=== PATIENT | male | born 1960 | race Native Hawaiian/Other Pacific Islander ===

== ENCOUNTER 2018-05-09 08:16 | Observation (INO) | payer BC ==
[2018-05-09] MEDS ORDERED: ASPIRIN 81 MG PO STA (08:42)
[2018-05-09] MEDS ORDERED: NITROGLYCERIN OINT 1 INCH/GM PACKET TOPICAL STA (08:42)
--- NOTE | 2018-05-09 08:47 | ED ---
General Adult HPI - General Chief complaint: Chest Pain Stated complaint: Chest Pain Time Seen by Provider: 05/09/18 08:20 Source: patient, RN notes reviewed Mode of arrival: wheelchair Limitations: no limitations - History of Present Illness Initial comments: This is a 58-year-old male who presents emergency Department with a past history of hypertension. Patient states he has a very strong family history of heart disease. Patient states this morning he woke up her chest pressure and some of his chest and he felt a little short of breath. Patient denies any radiation of the pain. Patient denies any diaphoresis. Patient denies any nausea vomiting. Patient denies any recent fever chills or cough. Patient denies having similar symptoms in the past. Patient denies abdominal pain patient denies nausea vomiting diarrhea. Patient denies any recent injury or trauma. Patient denies any excessive exercise. Patient denies any swelling to the legs or calf tenderness. - Related Data Home Medications Medication Instructions Recorded Confirmed Allopurinol [Zyloprim] 200 mg PO DAILY 05/09/18 05/09/18 Ascorbic Acid [Vitamin C] 500 mg PO DAILY 05/09/18 05/09/18 Aspirin EC [Ecotrin Low Dose] 81 mg PO DAILY 05/09/18 05/09/18 Carvedilol [Coreg] 3.125 mg PO BID 05/09/18 05/09/18 Losartan Potassium 50 mg PO HS 05/09/18 05/09/18 Multivitamin,Therapeutic [Thera] 1 tab PO DAILY 05/09/18 05/09/18 [place]-3 Fatty Acids/Fish Oil [Fish 1 cap PO DAILY 05/09/18 05/09/18 Oil 1,000 mg Softgel] Pravastatin Sodium [Pravachol] 80 mg PO HS 05/09/18 05/09/18 Red Yeast Rice 600 mg PO DAILY 05/09/18 05/09/18 Ubidecarenone [Co Q-10] 100 mg PO DAILY 05/09/18 05/09/18 metFORMIN HCL [Glucophage] 500 mg PO BID 05/09/18 05/09/18 Allergies Allergy/AdvReac Type Severity Reaction Status Date / Time No Known Allergies Allergy Verified 05/09/18 08:56 Review of Systems ROS Statement: Those systems with pertinent positive or pertinent negative responses have been documented in the HPI. ROS Other: All systems not noted in ROS Statement are negative. Past Medical History Past Medical History: Hypertension History of Any Multi-Drug Resistant Organisms: None Reported Past Surgical History: Orthopedic Surgery Past Psychological History: No Psychological Hx Reported Smoking Status: Never smoker Past Alcohol Use History: Occasional Past Drug Use History: None Reported - Past Family History Father Family Medical History: Coronary Artery Disease (CAD) Additional Family Medical History / Comment(s): Father had 3 vessel CABG at the age of 65yrs. Mother Family Medical History: No Reported History Additional Family Medical History / Comment(s): Mother is heathy. General Exam - General Exam Comments Initial Comments: GENERAL: Patient is well-developed and well-nourished. Patient is nontoxic and well- hydrated and is in mild distress. ENT: Neck is soft and supple. No significant lymphadenopathy is noted. Oropharynx is clear. Moist mucous membranes. Neck has full range of motion without eliciting any pain. EYES: The sclera were anicteric and conjunctiva were pink and moist. Extraocular mo vements were intact and pupils were equal round and reactive to light. Eyelids were unremarkable. PULMONARY: Unlabored respirations. Good breath sounds bilaterally. No audible rales rhonchi or wheezing was noted. CARDIOVASCULAR: There is a regular rate and rhythm without any murmurs gallops or rubs. ABDOMEN: Soft and nontender with normal bowel sounds. No palpable organomegaly was noted. There is no palpable pulsatile mass. SKIN: Skin is clear with no lesions or rashes and otherwise unremarkable. NEUROLOGIC: Patient is alert and oriented x3. Cranial nerves II through XII are grossly intact. Motor and sensory are also intact. Normal speech, volume and content. Symmetrical smile. MUSCULOSKELETAL: Normal extremities with adequate strength and full range of motion. LYMPHATICS: No significant lymphadenopathy is noted PSYCHIATRIC: Normal psychiatric evaluation. Limitations: no limitations Course Vital Signs 05/09/18 05/09/18 05/09/18 08:18 09:02 09:06 Temperature 97.8 F Pulse Rate 72 67 Pulse Rate [ 69 Quilt Stuffer ] Respiratory 18 17 Rate Blood Pressure 160/94 O2 Sat by Pulse 100 Oximetry 05/09/18 05/09/18 05/09/18 10:00 12:00 12:20 Temperature Pulse Rate 63 69 60 Pulse Rate [ Quilt Stuffer ] Respiratory 16 15 16 Rate Blood Pressure 134/88 125/85 O2 Sat by Pulse 98 Oximetry 05/09/18 05/09/18 13:31 14:00 Temperature Pulse Rate 73 70 Pulse Rate [ Quilt Stuffer ] Respiratory 18 15 Rate Blood Pressure 129/87 129/87 O2 Sat by Pulse 100 Oximetry Medical Decision Making - Medical Decision Making EKG shows normal sinus rhythm at 69 bpm CO interval is on a 56 QRS is 94 QT interval 380 QTC is 407 per patient's EKG shows no ST segment elevation or depression or T wave abnormalities are noted. Chest x-ray shows no acute abnormality. I started the patient on heparin. After the patient received aspirin and Nitropaste patient was feeling better and had no chest pain at this time. I spoke with Dr. Hernandez he agreed to admit the patient admitted the patient wrote admitting orders. I consult cardiology. I continued heparin and aspirin Nitropaste on the floor. - Lab Data Result diagrams: 05/09/18 09:00 05/09/18 09:00 Lab Results 05/09/18 05/09/18 05/09/18 Range/Units 09:00 09:00 09:00 WBC 8.2 (3.8-10.6) k/uL RBC 3.88 L (4.30-5.90) m/uL Hgb 12.9 L (13.0-17.5) gm/dL Hct 40.2 (39.0-53.0) % MCV 103.7 H (80.0-100.0) fL MCH 33.3 (25.0-35.0) pg MCHC 32.1 (31.0-37.0) g/dL RDW 12.8 (11.5-15.5) % Plt Count 191 (150-450) k/uL Neutrophils % 80 % Lymphocytes % 12 % Monocytes % 4 % Eosinophils % 3 % Basophils % 0 % Neutrophils # 6.6 (1.3-7.7) k/uL Lymphocytes # 1.0 (1.0-4.8) k/uL Monocytes # 0.4 (0-1.0) k/uL Eosinophils # 0.2 (0-0.7) k/uL Basophils # 0.0 (0-0.2) k/uL Macrocytosis Slight PT 9.8 (9.0-12.0) sec INR 0.9 (<1.2) APTT 23.7 (22.0-30.0) sec Sodium 141 (137-145) mmol/L Potassium 4.1 (3.5-5.1) mmol/L Chloride 109 H (98-107) mmol/L Carbon Dioxide 26 (22-30) mmol/L Anion Gap 6 mmol/L BUN 14 (9-20) mg/dL Creatinine 1.02 (0.66-1.25) mg/dL Est GFR (CKD-EPI)AfAm >90 (>60 ml/min/1.73 sqM) Est GFR (CKD-EPI)NonAf 80 (>60 ml/min/1.73 sqM) Glucose 117 H (74-99) mg/dL Calcium 9.3 (8.4-10.2) mg/dL Magnesium 1.6 (1.6-2.3) mg/dL Total Bilirubin 0.4 (0.2-1.3) mg/dL AST 28 (17-59) U/L ALT 39 (21-72) U/L Alkaline Phosphatase 50 (38-126) U/L Troponin I (0.000-0.034) ng/mL Total Protein 6.2 L (6.3-8.2) g/dL Albumin 3.7 (3.5-5.0) g/dL 05/09/18 Range/Units 09:00 WBC (3.8-10.6) k/uL RBC (4.30-5.90) m/uL Hgb (13.0-17.5) gm/dL Hct (39.0-53.0) % MCV (80.0-100.0) fL MCH (25.0-35.0) pg MCHC (31.0-37.0) g/dL RDW (11.5-15.5) % Plt Count (150-450) k/uL Neutrophils % % Lymphocytes % % Monocytes % % Eosinophils % % Basophils % % Neutrophils # (1.3-7.7) k/uL Lymphocytes # (1.0-4.8) k/uL Monocytes # (0-1.0) k/uL Eosinophils # (0-0.7) k/uL Basophils # (0-0.2) k/uL Macrocytosis PT (9.0-12.0) sec INR (<1.2) APTT (22.0-30.0) sec Sodium (137-145) mmol/L Potassium (3.5-5.1) mmol/L Chloride (98-107) mmol/L Carbon Dioxide (22-30) mmol/L Anion Gap mmol/L BUN (9-20) mg/dL Creatinine (0.66-1.25) mg/dL Est GFR (CKD-EPI)AfAm (>60 ml/min/1.73 sqM) Est GFR (CKD-EPI)NonAf (>60 ml/min/1.73 sqM) Glucose (74-99) mg/dL Calcium (8.4-10.2) mg/dL Magnesium (1.6-2.3) mg/dL Total Bilirubin (0.2-1.3) mg/dL AST (17-59) U/L ALT (21-72) U/L Alkaline Phosphatase (38-126) U/L Troponin I <0.012 (0.000-0.034) ng/mL Total Protein (6.3-8.2) g/dL Albumin (3.5-5.0) g/dL Critical Care Time Critical Care Time: Yes Total Critical Care Time: 35 Disposition Clinical Impression: Unstable angina Disposition: ADMITTED IP TO THIS [facility] Time of Disposition: 11:13
--- NOTE | 2018-05-09 09:35 | XR ---
EXAMINATION TYPE: XR chest 2V DATE OF EXAM: 05/09/2018 COMPARISON: NONE TECHNIQUE: PA and lateral views submitted. HISTORY: Chest pain FINDINGS: The lungs are clear and there is no pneumothorax, pleural effusion, or focal pneumonia. Heart size mildly prominent. No overt failure. Mild degenerative change of the spine. IMPRESSION: 1. No acute process.
[2018-05-09 10:17] LABS: ALT 39 U/L (21-72); AST 28 U/L (17-59); Albumin 3.7 g/dL (3.5-5.0); Alkaline Phosphatase 50 U/L (38-126); Anion Gap 6 mmol/L; Basophils % (A) 0 %; Blood Urea Nitrogen 14 mg/dL (9-20); Calcium 9.3 mg/dL (8.4-10.2); Carbon Dioxide 26 mmol/L (22-30); Chloride 109 mmol/L (98-107); Eosinophils # (A) 0.2 k/uL (0-0.7); Eosinophils % (A) 3 %; Glucose 117 mg/dL (74-99); HCT 40.2 % (39.0-53.0); HGB 12.9 gm/dL (13.0-17.5); Lymphocytes % (A) 12 %; MCH 33.3 pg (25.0-35.0); MCHC 32.1 g/dL (31.0-37.0); MCV 103.7 fL (80.0-100.0); Macrocytosis Slight; Magnesium 1.6 mg/dL (1.6-2.3); Mean Platelet Volume 6.3; Monocytes # (A) 0.4 k/uL (0-1.0); Monocytes % (A) 4 %; Neutrophils # (A) 6.6 k/uL (1.3-7.7); Neutrophils % (A) 80 %; Platelet Count 191 k/uL (150-450); Potassium 4.1 mmol/L (3.5-5.1); RBC 3.88 m/uL (4.30-5.90); RDW 12.8 % (11.5-15.5); Sodium 141 mmol/L (137-145); Total Bilirubin 0.4 mg/dL (0.2-1.3); Total Protein 6.2 g/dL (6.3-8.2); WBC 8.2 k/uL (3.8-10.6)
[2018-05-09 10:19] LABS: INR 0.9 (<1.2); Partial Thromboplastin Time 23.7 sec (22.0-30.0); Prothrombin Time 9.8 sec (9.0-12.0)
[2018-05-09] MEDS ORDERED: HEPARIN SODIUM,PORCINE 5,000 UNIT/ML 1 ML VIAL IV ONE (11:10)
[2018-05-09] MEDS ORDERED: NITROGLYCERIN SL TABS 0.4 MG TAB SUBLINGUAL PRN (11:13)
[2018-05-09] MEDS ORDERED: HEPARIN SOD,PORK IN 0.45% NACL 25,000 UNIT in 0.45% NACL 1 250ML.BAG IV SCH (11:15)
[2018-05-09] MEDS: NITROGLYCERIN OINT 1 INCH/GM PACKET TOPICAL SCH ×3 (12:27→23:20)
[2018-05-09 16:43] LABS: Glucose,Whole Blood 104 mg/dL (75-99)
[2018-05-09] MEDS: INSULIN ASPART (NovoLOG) 100 UNIT/ML VIAL SQ SCH ×2 (16:48→21:17)
[2018-05-09] MEDS ORDERED: MAG HYDROX/AL HYDROX/SIMETH 30 ML CUP PO PRN (17:00)
[2018-05-09] MEDS: CARVEDILOL 3.125 MG TAB PO SCH (17:17)
[2018-05-09] MEDS: ALLOPURINOL 100 MG TAB PO SCH (17:17)
[2018-05-09] MEDS: ASCORBIC ACID 500 MG TAB PO SCH (17:20)
[2018-05-09 18:41] LABS: D-Dimer 0.25 mg/L FEU (<0.60); Partial Thromboplastin Time 43.5 sec (22.0-30.0)
[2018-05-09] MEDS ORDERED: HEPARIN SODIUM,PORCINE 5,000 UNIT/ML 1 ML VIAL IV PRN (19:16)
[2018-05-09 20:29] LABS: Glucose,Whole Blood 159 mg/dL (75-99)
[2018-05-09] MEDS ORDERED: LOSARTAN 50 MG TAB PO SCH (21:00)
[2018-05-09] MEDS ORDERED: metFORMIN 500 MG TAB PO SCH (21:00)
[2018-05-09] MEDS ORDERED: PRAVASTATIN SODIUM 80 MG TAB PO SCH (21:00)
--- NOTE | 2018-05-09 22:44 | P.HPIM ---
History of Present Illness H&P Date: 05/09/18 Chief Complaint: Chest pressure Patient is a 58-year-old male with a known history of hypertension, hyperlipidemia, diabetes type 2 [id number], gout and family history of coronary artery disease came to ER with the complaints of chest pressure/soreness in the chest. Patient is mainly at the mid retrosternal. Associated with mild shortness of breath. Otherwise patient denied any radiation of the pain. No associated nausea vomiting or diaphoresis. Denied an y recent illnesses. No fever no chills. No cough or sputum production. No headache or dizziness or lightheadedness. Denied any heavy exercise or lifting rate. No leg swelling. No calf tenderness. Patient says that he woke up with so chest this morning. Patient is originally from [facility] and flew to [facility] 5 days back and came in [place] yesterday to see his family. Chest x-ray showed no acute cardio pulmonary process. EKG showed sinus rhythm with ST-T wave changes in the inferior leads. Troponin 2 negative Review of Systems Constitutional: Patient denies any fever or chills . No generalized weakness or weight loss. Abdomen: Patient denied nausea vomiting and diarrhea and abdominal pain. Cardiovascular: Chest pressure/soreness. Patient denies any chest pain or short of breath no palpitations. Respiratory: patient denied any cough is from production. No shortness of breath Neurologic: Patient denied any numbness or tingling headache. Musculoskeletal: Patient denies any complaints of joint swelling or deformity. Skin: Negative Psychiatric: Negative Endocrine: No heat or cold intolerance. No recent weight gain. Genitourinary: No dysuria or hematuria. All other 14 point ROS negative except the above Past Medical History Past Medical History: Hypertension Additional Past Medical History / Comment(s): NIDDM type II, gout. History of Any Multi-Drug Resistant Organisms: None Reported Past Surgical History: Orthopedic Surgery Additional Past Surgical History / Comment(s): R knee scope, colonoscopies Past Anesthesia/Blood Transfusion Reactions: No Reported Reaction Past Psychological History: No Psychological Hx Reported Smoking Status: Never smoker Past Alcohol Use History: Occasional Past Drug Use History: None Reported - Past Family History Father Family Medical History: Coronary Artery Disease (CAD) Additional Family Medical History / Comment(s): Father had 3 vessel CABG at the age of 65yrs. Mother Family Medical History: No Reported History Additional Family Medical History / Comment(s): Mother is heathy. Medications and Allergies Home Medications Medication Instructions Recorded Confirmed Type Allopurinol [Zyloprim] 200 mg PO DAILY 05/09/18 05/09/18 History Ascorbic Acid [Vitamin C] 500 mg PO DAILY 05/09/18 05/09/18 History Aspirin EC [Ecotrin Low Dose] 81 mg PO DAILY 05/09/18 05/09/18 History Carvedilol [Coreg] 3.125 mg PO BID 05/09/18 05/09/18 History Losartan Potassium 50 mg PO HS 05/09/18 05/09/18 History Multivitamin,Therapeutic [Thera] 1 tab PO DAILY 05/09/18 05/09/18 History [place]-3 Fatty Acids/Fish Oil [Fish 1 cap PO DAILY 05/09/18 05/09/18 History Oil 1,000 mg Softgel] Pravastatin Sodium [Pravachol] 80 mg PO HS 05/09/18 05/09/18 History Red Yeast Rice 600 mg PO DAILY 05/09/18 05/09/18 History Ubidecarenone [Co Q-10] 100 mg PO DAILY 05/09/18 05/09/18 History metFORMIN HCL [Glucophage] 500 mg PO BID 05/09/18 05/09/18 History Allergies Allergy/AdvReac Type Severity Reaction Status Date / Time No Known Allergies Allergy Verified 05/09/18 08:56 Physical Exam Vitals: Vital Signs Temp Pulse Pulse Pulse Resp BP BP 05/09/18 19:28 98.7 F 74 15 131/77 05/09/18 16:00 69 72 15 05/09/18 15:20 69 15 05/09/18 15:00 98.5 F 72 18 141/86 05/09/18 14:45 98.6 F 05/09/18 14:00 70 15 129/87 05/09/18 13:31 73 18 129/87 05/09/18 12:20 60 16 125/85 05/09/18 12:00 69 15 134/88 05/09/18 10:00 63 16 05/09/18 09:06 69 05/09/18 09:02 67 17 05/09/18 08:18 97.8 F 72 18 160/94 Pulse Ox 05/09/18 19:28 98 05/09/18 16:00 05/09/18 15:20 05/09/18 15:00 98 05/09/18 14:45 05/09/18 14:00 05/09/18 13:31 100 05/09/18 12:20 98 05/09/18 12:00 05/09/18 10:00 05/09/18 09:06 05/09/18 09:02 05/09/18 08:18 100 Intake and Output 05/09/18 05/09/18 05/09/18 06:59 14:59 22:59 Intake Total 665.773 Balance 665.773 Intake: Intake, IV Titration 65.773 Amount Heparin Sod,Pork in 0.45% 65.773 NaCl 25,000 unit In 0.45 % NaCl 1 250ml.bag @ 12 UNITS/KG/HR 9.199 mls/hr IV .Q24H NICK Rx#: [id number] Oral 600 Other: Voiding Method Toilet Weight 76.657 kg PHYSICAL EXAMINATION: Patient is lying in the bed comfortably, no acute distress, awake alert and oriented.. HEENT: Normocephalic. Neck is supple. Pupils reactive. Nostrils clear. Oral cavity is moist. Ears reveal no drainage. Neck reveals no JVD, carotid bruits, or thyromegaly. CHEST EXAMINATION: Trachea is central. Symmetrical expansion. Lung serrano clear to auscultation and percussion. CARDIAC: Normal S1, S2 with no gallops. No murmurs ABDOMEN: Soft. Bowel sounds normal. No organomegaly. No abdominal bruits. Extremities: reveal no edema. No clubbing or cyanosis Neurologically awake, alert, oriented x3 with well-coordinated movements. No focal deficits noted Skin: No rash or skin lesions. Psychiatric: Coperative. Nonsuicidal Musculoskeletal: No joint swelling or deformity. Normal range of motion. Results CBC & Chem 7: 05/09/18 09:00 05/09/18 09:00 Labs: Abnormal Lab Results - Last 24 Hours (Table) 05/09/18 05/09/18 05/09/18 Range/Units 09:00 09:00 16:15 RBC 3.88 L (4.30-5.90) m/uL Hgb 12.9 L (13.0-17.5) gm/dL MCV 103.7 H (80.0-100.0) fL APTT (22.0-30.0) sec Chloride 109 H (98-107) mmol/L Glucose 117 H (74-99) mg/dL POC Glucose (mg/dL) 104 H (75-99) mg/dL Total Protein 6.2 L (6.3-8.2) g/dL 05/09/18 05/09/18 Range/Units 18:00 20:27 RBC (4.30-5.90) m/uL Hgb (13.0-17.5) gm/dL MCV (80.0-100.0) fL APTT 43.5 H (22.0-30.0) sec Chloride (98-107) mmol/L Glucose (74-99) mg/dL POC Glucose (mg/dL) 159 H (75-99) mg/dL Total Protein (6.3-8.2) g/dL Thrombosis Risk Factor Assmnt - DVT/VTE Prophylaxis DVT/VTE Prophylaxis: Pharmacologic Prophylaxis ordered - Choose All That Apply Any of the Below Risk Factors Present?: Yes Each Factor Represents 1 point: Age 41-60 years Other Risk Factors: No Other congenital or acquired thrombophilia - If yes, enter type in comment: No Thrombosis Risk Factor Assessment Total Risk Factor Score: 1 Thrombosis Risk Factor Assessment Level: Low Risk Assessment and Plan Assessment: Chest pressure/unstable angina Hypertension Hyperlipidemia Diabetes type 2 zbb-hxhrqkk-hrwewunlz Gout Family history of coronary artery disease Plan: Patient will be on heparin drip. Continue with aspirin statins and Coreg. Patient will be continued on telemetry monitoring. Serial EKGs and troponins. Continue with home blood pressure medications and diabetic medications and insulin sliding scale. Cardiology was consulted. Further recommendations based on the clinical course. Time with Patient: Greater than 30
--- NOTE | 2018-05-09 23:25 | CONS ---
CONSULTATION HISTORY: Brian Guerrero is a 58-year-old gentleman with a known history of type 2 diabetes mellitus and hypertension as well as hypercholesterolemia who is visiting his family from [place]. His , but he came with his son to see the grandparents, his in-laws, and while he was here at their house he woke up this morning with a uncomfortable feeling in the chest which he described as soreness and tightness. With this, he came into the hospital. Two sets of troponins and EKG are unremarkable. He still feels he has some remanence of the soreness. The quality of the pain is very atypical, but he has significant risk factors. He is quite an active person, exercises 5 days a week. He had a stress test about 2 years ago which was unremarkable. At the time of my evaluation he is resting comfortably without symptoms. PAST MEDICAL HISTORY: 1. Hypertension. 2. Type 2 diabetes mellitus. 3. History of left knee issue for which he had arthroscopic surgery. 4. Hypertension. 5. Hyperlipidemia. MEDICATIONS: At home include metformin 500 mg b.i.d., pravastatin 80 mg daily, losartan 50 mg daily, Coreg 3.125 mg b.i.d., aspirin 81 mg daily, vitamin supplements, and allopurinol. ALLERGIES: None. REVIEW OF SYSTEMS: Unremarkable other than above-mentioned facts. PHYSICAL EXAMINATION: Blood pressure is 130/70, pulse rate 70 per minute and regular. HEENT: Unremarkable. Fundus was not examined by me. NECK: Supple. No JVD. I do not hear a carotid bruit. HEART: Exam reveals S1, S2 heard normally without a rub murmur or gallop. LUNGS: Clear. ABDOMEN: Soft, nontender. Lower extremities reveal normal pulses. No edema. FUR STRETCHER: Normal. DIAGNOSTIC DATA: EKG is unremarkable. Normal sinus rhythm noted. IMPRESSION: 1. Chest pain syndrome seems atypical in a patient with significant risk factors. 2. Hypertension. 3. Hyperlipidemia. 4. Type 2 diabetes mellitus. RECOMMENDATIONS: I will continue heparin until tomorrow. I will obtain additional enzymes. If these are normal, we will increase activity and if he has no further symptoms after brisk ambulation, I may discharge him. If he has any symptoms, I will keep him in the hospital and consider a stress test or cardiac cath. I discussed my thoughts in detail with the patient, his son and his in-laws. They understand all details and agree with the approach. MMCLEMENTINEL / IJN: [id number] /
[2018-05-10 04:49] VITALS: RESP 16
[2018-05-10] MEDS: NITROGLYCERIN OINT 1 INCH/GM PACKET TOPICAL SCH ×2 (05:39→09:19)
[2018-05-10 06:51] LABS: Glucose,Whole Blood 115 mg/dL (75-99)
[2018-05-10] MEDS: INSULIN ASPART (NovoLOG) 100 UNIT/ML VIAL SQ SCH ×2 (07:34→11:54)
[2018-05-10 08:31] LABS: Cholesterol 148 mg/dL (<200); HDL Cholesterol 55 mg/dL (40-60); LDL Cholesterol,Calculated 70 mg/dL (0-99); Triglycerides 115 mg/dL (<150)
[2018-05-10] MEDS ORDERED: ASPIRIN 325 MG TAB PO SCH (09:00)
[2018-05-10] MEDS ORDERED: ASPIRIN 81 MG PO SCH (09:00)
[2018-05-10] MEDS ORDERED: Omega-3 Fatty Acids/Fish Oil [Fish Oil 1,000 Mg Softgel] 1 CAP PO SCH (09:00)
[2018-05-10] MEDS: ALLOPURINOL 100 MG TAB PO SCH (09:19)
[2018-05-10] MEDS: CARVEDILOL 3.125 MG TAB PO SCH (09:19)
[2018-05-10] MEDS: ASCORBIC ACID 500 MG TAB PO SCH (09:19)
[2018-05-10 11:50] LABS: Glucose,Whole Blood 242 mg/dL (75-99)
[2018-05-10] MEDS ORDERED: MULTIVITAMINS, THERA 1 EACH TAB PO SCH (12:00)
[2018-05-10 12:10] VITALS: BP 112/68; PULSE 71; TEMP 98.2
[2018-05-10] MEDS ORDERED: COLCHICINE 0.6 MG EACH PO SCH (12:15)
--- NOTE | 2018-05-10 17:26 | ECHOF ---
Referral Reason:chest pain MEASUREMENTS -------- HEIGHT: 172.7 cm WEIGHT: 76.7 kg BP: RVIDd: 3.0 cm (< 3.3) IVSd: 1.3 cm (0.6 - 1.1) LVIDd: 4.3 cm (3.9 - 5.3) LVPWd: 1.4 cm (0.6 - 1.1) IVSs: 1.3 cm LVIDs: 2.9 cm LVPWs: 1.5 cm LA Diam: 3.6 cm (2.7 - 3.8) LAESV Index (A-L): 29.71 ml/m Ao Diam: 3.4 cm (2.0 - 3.7) AV Cusp: 2.0 cm (1.5 - 2.6) LA Diam: 4.0 cm (2.7 - 3.8) MV EXCURSION: 20.824 mm (> 18.000) MV EF SLOPE: 94 mm/s (70 - 150) EPSS: 0.2 cm MV E Jeb: 0.74 m/s MV DecT: 185 ms MV A Jeb: 0.92 m/s MV E/A Ratio: 0.81 RAP: 5.00 mmHg RVSP: 34.94 mmHg FINDINGS -------- Sinus rhythm. This was a technically good study. The left ventricular size is normal. There is mild concentric left ventricular hypertrophy. Overa ll left ventricular systolic function is normal with, an EF between 55 - 60 %. The right ventricle is normal in size. The left atrial size is normal. The right atrial size is normal. There is mild aortic valve sclerosis. There is no evidence of aortic regurgitation. The mitral valve leaflets are mildly thickened. Mild mitral regurgitation is present. Mild tricuspid regurgitation present. There is no evidence of pulmonary hypertension. The right v entricular systolic pressure, as measured by Doppler, is 34.94mmHg. Trace/mild (physiologic) pulmonic regurgitation. The aortic root size is normal. There is no pericardial effusion. CONCLUSIONS -------- 1. The left ventricular size is normal. 2. There is mild concentric left ventricular hypertrophy. 3. Overall left ventricular systolic function is normal with, an EF between 55 - 60 %. 4. The right ventricle is normal in size. 5. The left atrial size is normal. 6. The right atrial size is normal. 7. There is mild aortic valve sclerosis. 8. The mitral valve leaflets are mildly thickened. 9. Mild mitral regurgitation is present. 10. Mild tricuspid regurgitation present. 11. There is no evidence of pulmonary hypertension. 12. The right ventricular systolic pressure, as measured by Doppler, is 34.94mmHg. 13. Trace/mild (physiologic) pulmonic regurgitation. 14. The aortic root size is normal. 15. There is no pericardial effusion. WATCH ASSEMBLER: Hansa Pickering RDCS
--- NOTE | 2018-05-10 18:05 | PN ---
PROGRESS NOTE This is a gentleman who was seen by me yesterday. His pain was atypical. His troponins are normal. He is resting comfortably. This morning he feels well. He ambulated the hallways very briskly without symptoms. Clinically I cannot hear any abnormal findings. There is no pericardial rub, but EKG suggests there is a maybe pericarditis with CA depression and very mild J-point elevation. Given this, I will start him on colchicine 0.6 mg p.o. now and Colcrys 0.6 mg p.o. daily for the next 10- 14 days. I gave a prescription for this. Since he is ambulated without symptoms and is feeling well, I am recommending that he can be discharged today and go to [place] by flight tomorrow and he will follow up with his physician there in the next 48 hours. PHYSICAL EXAMINATION: Vital signs are stable. There is no JVD. S1-S2 heard normally. No rub, murmur or gallop. Lungs are clear. Abdomen and lower extremity exam is unchanged. MMODL / IJN: [id number] /
--- NOTE | 2018-05-26 | P.DS ---
Providers Date of admission: 05/09/18 11:13 Expected date of discharge: 05/10/18 Attending physician: Jarocho Hernandez Consults: 05/09/18 11:13 Consult Physician Urgent Consulting Provider: [facility] Consult Reason/Comments: Unstable angina Do you want consulting provider notified?: Yes Primary care physician: Physician Nonstaff Hospital Course: Discharge diagnosis Suspected acute pericarditis Chest pressure/unstable angina Hypertension Hyperlipidemia Diabetes type 2 iid-hetjzti-slhgtxqxi Gout Family history of coronary artery disease Hospital course Patient is a 58-year-old male with a known history of hypertension, hyperlipidemia, diabetes type 2 pec-ztsqyjp-vqnqultpz, gout and family history of coronary artery disease came to ER with the complaints of chest pressure/soreness in the chest. Patient is mainly at the mid retrosternal. Associated with mild shortness of breath. Otherwise patient denied any radiation of the pain. No associated nausea vomiting or diaphoresis. Denied any recent illnesses. No fever no chills. No cough or sputum production. No headache or dizziness or lightheadedness. Denied any heavy exercise or lifting rate. No leg swelling. No calf tenderness. Patient says that he woke up with so chest this morning. Patient is originally from [facility] and flew to [facility] 5 days back and came in [place] yesterday to see his family. Chest x-ray showed no acute cardio pulmonary process. EKG showed sinus rhythm with ST-T wave changes in the inferior leads. Troponin 3 negative Plan: Patient was initially started on heparin drip. Serial troponins negative. Patient was found have T-wave Depression and J-point elevation with suspected acute pericarditis. Patient was started on 0.6 mg daily. Continue with aspirin statins and Coreg. Patient was continued on telemetry monitoring. Cardiology has seen the patient. Continued with home blood pressure medications and diabetic medications and insulin sliding scale. Patient is planning to fly back to [place] tomorrow evening. 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 Patient is currently chest pain-free and is able to walk in the hallway without any shortness of breath. Clinically stable to be discharged. PHYSICAL EXAMINATION: Patient is lying in the bed comfortably, no acute distress, awake alert and oriented.. HEENT: Normocephalic. Neck is supple. Pupils reactive. Nostrils clear. Oral cavity is moist. Ears reveal no drainage. Neck reveals no JVD, carotid bruits, or thyromegaly. CHEST EXAMINATION: Trachea is central. Symmetrical expansion. Lung serrano clear to auscultation and percussion. CARDIAC: Normal S1, S2 with no gallops. No murmurs ABDOMEN: Soft. Bowel sounds normal. No organomegaly. No abdominal bruits. Extremities: reveal no edema. No clubbing or cyanosis Neurologically awake, alert, oriented x3 with well-coordinated movements. No focal deficits noted Skin: No rash or skin lesions. Psychiatric: Coperative. Nonsuicidal Musculoskeletal: No joint swelling or deformity. Normal range of motion. Discharge vitals reviewed. Patient Condition at Discharge: Stable Plan - Discharge Summary Discharge Rx Participant: No New Discharge Prescriptions: New Colchicine [Colcrys] 0.6 mg PO DAILY #14 each Continue Red Yeast Rice 600 mg PO DAILY Aspirin EC [Ecotrin Low Dose] 81 mg PO DAILY metFORMIN HCL [Glucophage] 500 mg PO BID Ubidecarenone [Co Q-10] 100 mg PO DAILY Pravastatin Sodium [Pravachol] 80 mg PO HS [place]-3 Fatty Acids/Fish Oil [Fish Oil 1,000 mg Softgel] 1 cap PO DAILY Losartan Potassium 50 mg PO HS Allopurinol [Zyloprim] 200 mg PO DAILY Carvedilol [Coreg] 3.125 mg PO BID No Action Multivitamin,Therapeutic [Thera] 1 tab PO DAILY Ascorbic Acid [Vitamin C] 500 mg PO DAILY Discharge Medication List Allopurinol [Zyloprim] 200 mg PO DAILY 05/09/18 [History] Ascorbic Acid [Vitamin C] 500 mg PO DAILY 05/09/18 [History] Aspirin EC [Ecotrin Low Dose] 81 mg PO DAILY 05/09/18 [History] Carvedilol [Coreg] 3.125 mg PO BID 05/09/18 [History] Losartan Potassium 50 mg PO HS 05/09/18 [History] Multivitamin,Therapeutic [Thera] 1 tab PO DAILY 05/09/18 [History] [place]-3 Fatty Acids/Fish Oil [Fish Oil 1,000 mg Softgel] 1 cap PO DAILY 05/09/18 [History] Pravastatin Sodium [Pravachol] 80 mg PO HS 05/09/18 [History] Red Yeast Rice 600 mg PO DAILY 05/09/18 [History] Ubidecarenone [Co Q-10] 100 mg PO DAILY 05/09/18 [History] metFORMIN HCL [Glucophage] 500 mg PO BID 05/09/18 [History] Colchicine [Colcrys] 0.6 mg PO DAILY #14 each 05/10/18 [Rx] Follow up Appointment(s)/Referral(s): Nonstaff,Physician [Primary Care Provider] - 1-2 days Discharge Disposition: HOME SELF-CARE
== END 2018-05-10 14:43 | disposition home or self-care (01) ==
LOC: EC 08:16 → 1SOBS 11:13
PROVIDERS: ADMIT Hospitalist; ATTEND Hospitalist
DX: I20.0 Unstable angina (principal); I10 Essential (primary) hypertension; E78.5 Hyperlipidemia, unspecified; E11.9 Type 2 diabetes mellitus without complications; M10.9 Gout, unspecified; Z82.49 Family history of ischemic heart disease and other diseases of the circulatory system; Z79.899 Other long term (current) drug therapy; Z79.82 Long term (current) use of aspirin; Z79.84 Long term (current) use of oral hypoglycemic drugs
CPT/HCPCS: 96366 ×3; 96376 ×2; 96365; 99291; 36415; 93005; 93306; 85379; 80061; 80053; 83735; 84484; 85025; 85610; 85730 ×2; 71046; G0378 ×2; J1644 ×2